=== PATIENT | male | born 1995 ===

== ENCOUNTER 2023-02-16 00:32 | Emergency (ER) | payer SELFPAY ==
[~2023-02-16] VITALS: Ht 170 cm; Wt 73.0 kg
[2023-02-16 00:38] VITALS: BP 116/69
--- NOTE | 2023-02-16 00:59 | ED Integumentary General ---
General Chief Complaint: Laceration Stated Complaint: LEFT FOOT LAC Nursing Triage Note: 2CM LEFT MEDIAL ANKLE LACERATION FROM LAMINATED LIBRA MATERIAL. Source: patient Exam Limitations: language barrier (patient preferref friend to interpret) History of Present Illness Date Seen by Provider: Feb 16, 2023 Time Seen by Provider: 00:43 Initial Comments Patient is a 27-year-old male who presents to the emergency room with a chief complaint of laceration to the left medial ankle. He states that a piece of laminated libra material cut his leg. Horizontally oriented 2 cm laceration noted over the distal medial left leg. Minimal active bleeding. Distal neurovascularly intact. The laceration is more of a shearing type injury. No foreign body, the laceration does not extend deeper than subcutaneous tissues. Patient has unknown last tetanus. No allergies to medications. Timing/Duration: just prior to arrival Severity: mild Location: extremities (lef lower leg) Associated Symptoms: denies symptoms Allergies and Home Medications Allergies Coded Allergies: No Known Drug Allergies (Unverified , 02/16/23) Patient Home Medication List Home Medication List Reviewed: Yes No Active Prescriptions or Reported Meds Review of Systems Review of Systems Constitutional: see HPI Skin: other (skin laceration) Past Zdlelie-Uqzjnq-Snvrlx Hx Patient Social History Tobacco Use?: No Substance use?: No Alcohol Use?: No Pt feels they are or have been: No Past Medical History Surgery/Hospitalization HX: DENIES Physical Exam Vital Signs Vital Signs - First Documented 02/16/23 00:38 Temp 36.2 Pulse 80 Resp 16 B/P (MAP) 116/69 (85) Pulse Ox 95 O2 Delivery Room Air Capillary Refill : Less Than 3 Seconds General Appearance: WD/WN, no apparent distress HEENT: PERRL/EOMI, other (bilateral conjunctival injection) Respiratory: no respiratory distress, no accessory muscle use Extremities: normal range of motion Neurologic/Psychiatric: alert, normal mood/affect, oriented x 3 Skin: other (2cm horizontally oriented laceration, min ozzing of blood. no foreign body) Procedures/Interventions Wound Location: Lower Extremities (left medial lower leg) Wound Length (cm): 2 Wound's Depth, Shape: superficial, linear Wound Explored: clean Irrigated w/ Saline (ccs): 200 Anesthesia: 1% Lidocaine (2) Volume Anesthetic (ccs): 1 Suture: Prolene Suture Size: 4-0 Number of Sutures: 3 Progress/Results/Core Measures Results/Orders My Orders Orders - JESSA MALONEY MD Dipht/Pertuss(Acell)/Tet Adult (Dipht/Pe (02/16/23 01:00) Medications Given in ED Current Medications Medications Dose Ordered Sig/Ha Route Start Time Stop Time Status Last Admin Dose Admin Diphtheria/ Tetanus/Acell Pertussis 0.5 ml ONCE ONCE IM 02/16/23 01:00 02/16/23 01:01 DC 02/16/23 01:11 0.5 ML Vital Signs/I&O 02/16/23 00:38 Temp 36.2 Pulse 80 Resp 16 B/P (MAP) 116/69 (85) Pulse Ox 95 O2 Delivery Room Air Blood Pressure Mean: 85 Progress Progress Note : Time: 00:57 Progress Note Patient seen and evaluated by me. Evaluation today includes physical exam. Pertinent physical exam findings, well-developed well-nourished male no acute distress. 2 cm horizontally oriented laceration to the medial distal left lower leg. Minimal active bleeding is noted. The laceration is superficial. Will closed to approximate wound margins to decrease bleeding. Patient's tetanus updated. No concern for foreign body, consideration for x-ray however history and physical do not support the need. Patient's tetanus shot is updated. Wound is anesthetized with approximately 2 mL of 1% plain lidocaine. Cleansed with surgical scrub and saline, irrigated copiously. Wound closure with 3 4-0 Prolene sutures. Wound care precautions provided. Advised stitches will need to come out in 2 weeks. Patient verbalized understanding. All questions are sought and answered Departure Impression Primary Impression: Laceration of left leg Qualified Codes: S81.812A - Laceration without foreign body, left lower leg, initial encounter Disposition: HOME, SELF-CARE Condition: Stable Departure-Patient Inst. Decision time for Depature: 00:56 Referrals: NO,LOCAL PHYSICIAN (PCP/Family) Primary Care Physician Patient Instructions: Laceration Repair With Stitches ED Add. Discharge Instructions: Keep the wound clean dry and covered for 1 to 2 days. Wash the wound every day with a mild soap and water. You can use a little antibiotic ointment that you can get [id number]. Use this twice a day. Monitor the wound for signs of infection such as increasing swelling, redness or drainage. The stitches will need to be pulled out in 2 weeks. You can come back to the emergency department because it is a part of this visit. If you have any new, concerning or emergent complaints please return to the emergency room for reevaluation. Mantenga la herida limpia, seca y cubierta candelaria 1 a 2 drummond. Lave la herida todos los drummond con agua y jabn suave. Puedes usar un poco de pomada antibitica que puedes conseguir sin receta. Use esto dos veces al da. Controle la herida para detectar signos de infeccin, echo aumento de la hinchazn, enrojecimiento o drenaje. Ser necesario retirar los puntos en 2 semanas. Puede regresar al departamento de emergencias porque es parte de esta visita. Si tiene alguna queja nueva, preocupante o emergente, regrese a la ekta de emergencias para denita reevaluacin. Scripts No Active Prescriptions or Reported Meds JESSA MALONEY MD Feb 16, 2023 00:59
[2023-02-16] MEDS ORDERED: Tetanus/Diphtheria/Pertussis (Acell) ADULT Vaccine 0.5 ML IM ONE (01:00)
== END 2023-02-16 01:26 | disposition home or self-care (01) ==
LOC: ER 00:36
DX: S91.012A Laceration without foreign body, left ankle, initial encounter (principal); Z23 Encounter for immunization; W26.8XXA Contact with other sharp object(s), not elsewhere classified, initial encounter
CPT/HCPCS: 12001; 90471; 90715